=== PATIENT | female | born 1985 | race Caucasian/White ===

== ENCOUNTER 2020-09-11 10:37 | Emergency (ER) | payer OTHER ==
[~2020-09-11] VITALS: Ht 170.2 cm; Wt 126.5 kg
[~2020-09-11 10:37] MED LIST: IRON325 PO; PRENATAL COMPL1 EACH PO
[2020-09-11 11:26] VITALS: BP 163/86
== END 2020-09-11 11:27 | disposition home or self-care (01) ==
LOC: M.ERS 10:37
DX: S61.412A Laceration without foreign body of left hand, initial encounter (principal); W25.XXXA Contact with sharp glass, initial encounter; Y93.89 Activity, other specified; Y92.89 Other specified places as the place of occurrence of the external cause; Y99.8 Other external cause status